=== PATIENT | female | born 2000 | race Caucasian/White ===

== ENCOUNTER 2025-01-11 06:10 | Outpatient (REF) | payer OTHER, SELFPAY ==
--- NOTE | ~2025-01-11 | US_ITS ---
CLINICAL HISTORY: H O DIDELPHYS UT W DUPLICATE CX. EVALUATE KIDNEYS US kidneys and bladder Comparison: None provided Findings: Right kidney 11.1 cm length. No significant focal abnormality. Left kidney 10.5 cm length. No significant focal abnormality. No bilateral hydronephrosis. Normal bilateral renal echogenicity. The urinary bladder is unremarkable. Prevoid volume 154 mL. Post void volume 25.4 mL. Bilateral ureteral jets visualized. Impression: No significant abnormalities. This document has been electronically signed by: Mathew Christie MD on 01/11/2025 21:53:08
== END 2025-01-11 06:11 | disposition home or self-care (01) ==
LOC: HO.UMASIMG 06:10
PROVIDERS: Visit Provider Nurse Practitioner Family
DX: Z00.01 Encounter for general adult medical examination with abnormal findings (principal); Z12.4 Encounter for screening for malignant neoplasm of cervix; F41.1 Generalized anxiety disorder; L73.8 Other specified follicular disorders; Q52.4 Other congenital malformations of vagina; F90.9 Attention-deficit hyperactivity disorder, unspecified type
CPT/HCPCS: 76770

== ENCOUNTER → 2025-01-11 10:30 | Outpatient (BNV) | payer OTHER, SELFPAY | PROVIDERS: Visit Provider Radiology Diagnostic Radiology | DX: Q51.820 Cervical duplication (principal) | CPT/HCPCS: 76770 ==